=== PATIENT | female | born 1980 | race Caucasian/White ===

== ENCOUNTER 2016-04-14 09:49 | Emergency (ER) | payer BC ==
[~2016-04-14] VITALS: Ht 165.1 cm; Wt 103.6 kg
[~2016-04-14 09:49] MED LIST: FLEXERIL10 MG PO; IRON FERROUS S325 MG PO; LORTAB 5/500 501 TAB PO; MOTRIN 600600 MG/TAB PO; NAPROSYN PO; NO HOME MEDICATIONS; NORCO 325 MG-51 TAB PO; PERCOCET 325 MG1 TA2 PO; PRENATAL1 TA1; TIROSINT100 MCG
[2016-04-14] MEDS ORDERED: SYNTHROID0.175 MG PO (09:55)
[2016-04-14 10:44] LABS: HEMOGLOBIN 12.7 g/dl (12.5-16.0); MEAN CELL VOLUME 87 fl (80.0-100.0); MEAN CORPUSCULAR HEMOGLOBIN 30 pg (27.0-31.0); MEAN CORPUSCULAR HGB CONC 34 g/dl (33.0-37.0); MEAN PLATELET VOLUME 9.6 fl (7.4-10.4); PLATELET COUNT 271 K/mm3 (130-400); RED BLOOD COUNT 4.22 M/mm3 (4.10-5.30); REDCELL DISTRIBUTION WIDTH-CV 12.8 % (11.5-14.5); WHITE BLOOD COUNT 6.9 K/mm3 (4.8-10.8)
[2016-04-14 10:48] LABS: ADJUSTED CALCIUM 9.3 mg/dL (8.4-10.2); ALBUMIN 3.8 gm/dL (3.5-5.0); BILIRUBIN,TOTAL 0.8 mg/dL (0.0-1.0); CALCIUM 9.1 mg/dL (8.4-10.2); CREATININE, serum 0.61 mg/dL (0.52-1.25); POTASSIUM 3.7 mmol/L (3.4-5.0); TOTAL PROTEIN 7.6 gm/dL (6.4-8.2)
[2016-04-14 10:49] LABS: ADD PATHOLOGY DIFF REVIEW NO; HEMATOCRIT 36.9 % (37.0-47.0)
[2016-04-14] MEDS ORDERED: PHENERGAN 25 TA25 MG PO (11:33)
[2016-04-14 11:51] LABS: BAND 13 % (0-10); NEUTROPHILS 77 % (42.0-75.2); PLATELET ESTIMATE NORMAL (NORMAL); TOTAL CELLS COUNTED 100
[2016-04-14 12:24] LABS: PH 6 (5-8); URINE APPEARANCE Hazy; URINE BACTERIA Rare /hpf; URINE BILIRUBIN Negative (NEGATIVE); URINE BLOOD Negative (NEGATIVE); URINE COLOR Yellow; URINE GLUCOSE Negative (NEGATIVE); URINE KETONE 1+ (NEGATIVE); URINE UROBILINOGEN Negative (NEGATIVE)
[2016-04-14 12:56] VITALS: BP 102/65; PULSE 90; TEMP 99.1
== END 2016-04-14 13:02 | disposition home or self-care (01) ==
LOC: COL.ER 09:49
PROVIDERS: Emergency Medicine
DX: O99.89 Other specified diseases and conditions complicating pregnancy, childbirth and the puerperium (principal); R11.10 Vomiting, unspecified; R19.7 Diarrhea, unspecified; Z3A.16 16 weeks gestation of pregnancy
CPT/HCPCS: J2550; J7030

== ENCOUNTER 2016-08-09 16:00 | Inpatient (IN) | payer BC ==
[~2016-08-09] VITALS: Ht 165.2 cm; Wt 108.2 kg
[~2016-08-09 16:00] MED LIST changes: +PHENERGAN 25 TA25 MG PO; +SYNTHROID0.175 MG PO
[2016-09-22] VITALS (16 sets, daily range): BP systolic 94–128; BP diastolic 48–77; PULSE 70–105; TEMP 97.4–98.3
[2016-09-22 10:45] LABS: BASO % 0.4 % (0.0-2.0); EOS # 0.2 (0.0-0.7); EOS % 2.8 % (0-4.0); GRAN # 5.4 (1.4-6.5); GRAN % 67.7 % (42.2-75.2); LYMPH # 1.5 (1.2-3.4); LYMPH % 18.9 % (20.0-51.0); MEAN CELL VOLUME 86 fl (80.0-100.0); MEAN CORPUSCULAR HGB CONC 34 g/dl (33.0-37.0); MEAN PLATELET VOLUME 9.6 fl (7.4-10.4); MONO # 0.7 (0.1-0.6); MONO % 9.1 % (1.7-9.3); PLATELET COUNT 263 K/mm3 (130-400); RED BLOOD COUNT 3.88 M/mm3 (4.10-5.30); REDCELL DISTRIBUTION WIDTH-CV 13.7 % (11.5-14.5)
[2016-09-22 10:48] LABS: HEMATOCRIT 33.2 % (37.0-47.0); HEMOGLOBIN 11.3 g/dl (12.5-16.0); MEAN CORPUSCULAR HEMOGLOBIN 29 pg (27.0-31.0)
[2016-09-22] MEDS ORDERED: PROFERRIN ES12 MG PO (10:53)
[2016-09-22] MEDS ORDERED: PRENATAL MVI (10:53)
[2016-09-23] VITALS: BP 93/44; PULSE 69; TEMP 98.4
[2016-09-23 07:34] LABS: HEMATOCRIT 28.1 % (37.0-47.0); HEMOGLOBIN 9.4 g/dl (12.5-16.0)
[2016-09-23 08:12] VITALS: BP 107/60; PULSE 77; TEMP 97.7
[2016-09-23 15:35] VITALS: BP 98/46; PULSE 87; TEMP 98.1
[2016-09-23 20:15] VITALS: BP 110/63; PULSE 89; TEMP 98
[2016-09-24 07:54] VITALS: BP 99/60; PULSE 79; TEMP 98
[2016-09-24] MEDS ORDERED: IBU600 MG PO (10:33)
[2016-09-24] MEDS ORDERED: PERCOCET 325 MG1 TA2 PO (10:34)
[2016-09-24] MEDS ORDERED: LEVOXYL0.2 MG PO (10:35)
== END 2016-09-24 15:05 | disposition home or self-care (01) | DRG 766 ==
LOC: LDR 09-22 06:42 → OB 09-22 10:02 → EDSTATUS 09-29 06:41 → LDRO 09-29 16:00
PROVIDERS: Obstetrics & Gynecology
PROC: 10D00Z1 Extraction of Products of Conception, Low, Open Approach (ICD-10-PCS; principal; 2016-09-22)
PROC: 0UB70ZZ Excision of Bilateral Fallopian Tubes, Open Approach (ICD-10-PCS; 2016-09-22)
DX: O34.211 Maternal care for low transverse scar from previous cesarean delivery (principal); N85.8 Other specified noninflammatory disorders of uterus; O36.1130 Maternal care for Anti-A sensitization, third trimester, not applicable or unspecified; O99.284 Endocrine, nutritional and metabolic diseases complicating childbirth; E03.9 Hypothyroidism, unspecified; Z40.09 Encounter for prophylactic removal of other organ; O69.81X0 Labor and delivery complicated by cord around neck, without compression, not applicable or unspecified; Z3A.39 39 weeks gestation of pregnancy; Z37.0 Single live birth
CPT/HCPCS: J0690; J1885; J2175; J2270; J2370; J2405; J2590; J7120